=== PATIENT | male | born 1955 | race Caucasian/White ===

== ENCOUNTER 2016-11-27 08:09 | Day surgery (SDC) | payer OTHER ==
[2016-11-27] VITALS (18 sets, daily range): BP systolic 120–174; BP diastolic 64–108; PULSE 60–71; RESP 14–18; O2SAT 95–100
[~2016-11-27] VITALS: Ht 175.3 cm; Wt 92.9 kg
[~2016-11-27 08:09] MED LIST: ASPI-973 PO; LIP40 PO; LISI40TA PO; Lidocaine-Prilo 2.5-2.5% 30 Gm Cream TOPICAL ONE; METF500T4 PO; METR45GE TOP; TAMS0.4C98 PO; TRAZ-115 PO
[2016-11-27] MEDS ORDERED: EPHEDrine/NS 5 mg/mL 5 mL Syringe ONE (08:10)
[2016-11-27] MEDS ORDERED: fentaNYL-PF 50 mCg/mL 2 mL Inj ONE (08:10)
[2016-11-27] MEDS ORDERED: Propofol 10,000 mCg/mL 20 mL Inj ONE (08:10)
[2016-11-27] MEDS ORDERED: Ondansetron 2 mg/mL 2 mL Inj ONE (08:10)
--- NOTE | 2016-11-27 08:33 | PCM.HPANE ---
Patient Data Surgeon Admitting Provider: Attending Provider:Elisha Jacobson MD Primary Care Physician:Dylan Montalvo MD Other Provider:Shanthi Oconnell Anesthesia Reason for Visit Left Kidney Stone Ht/WT & BMI Height (Feet): 5 Height (Inches): 9 Weight (Kilograms): 94.08 Body Mass Index 30.00 Allergies Coded Allergies: latex (Unverified Adverse Reaction, Unknown, 11/26/16) Past Anesthesia History Anesthesia History: Denies:: Abnormal Airway, Anesthesia Reactions, Difficult Intubation, Fam Anesthesia Reaction Diabetes History Hx Diabetes?: Yes (Hgb A1C 7- approx 2 months ago ) Type of Diabetes: Type II Glycemic Control: Oral Medication MRSA MRSA: No Medications Hypertension Medication: Yes Home Meds Incl Beta Twila: No Reported Medications Trazodone 50 Mg [id number] Mg PO BID Ref 0 11/26/16 Tamsulosin (Flomax)0.4 Mg Capsule0.4 Mg PO DAILY Ref 0 11/26/16 Metformin 500 Mg [id number] Mg PO BID Ref 0 11/26/16 Lisinopril 40 Mg [id number] Mg PO DAILY 30 Days Ref 0 11/26/16 Atorvastatin (Lipitor)40 Mg [id number] Mg PO DAILY Ref 0 11/26/16 Aspirin 81 Mg [id number] Mg PO DAILY Ref 0 11/26/16 Discontinued Reported Medications Metronidazole (Metronidazole Gel)1 Applic/0.25 Gm Gel1 Applic TOP BID #45 GM Ref 0 11/26/16 History HEENT History: Denies:: Abnormal Airway Cataracts Difficult Intubation Dysphagia Glaucoma Hearing Problem Sinus Problem TMJ Other HEENT Pertinent History: hx of three wisdom teeth pulled a few months ago with conscious sedation Cardiovascular History: Positive for:: Hypertension Denies:: AICD Abdominal Aortic Aneurism Atrial Fibrillation Cardiac Surgery Chest Pain Congestive Heart Failure Coronary Artery Disease Heart Murmur Irregular Heartbeat Pacemaker Peripheral Vascular Rheumatic Fever Thrombophlebitis Hx of Respiratory Problem?: No Respiratory History: Denies:: Asthma COPD Emphysema Hemoptysis Oxygen Administration Pneumonia Pulmonary Embolism Tuberculosis Use of C-PAP Machine Hx Neurologic Problems?: No Neurological History: Denies:: CVA Dementia Dizziness Headaches Multiple Sclerosis Parkinson's Disease Seizures Gastrointestinal History: Denies:: Cirrhosis Gall Bladder Disease Gastroesphageal Reflux Gastrointestinal Bleeding Heartburn Hepatitis Hiatal Hernia Liver Disease Rectal Bleeding Hx of Problems?: Yes Genitourinary History: Positive for:: Kidney Stones (left kidney stone current admission) Denies:: Urinary Tract Infection Other Pertinent History: prior kidney stones, passed spontaneously Male Hx: Denies:: Prostate Problems Skin History: Denies:: History Skin Disorders? Pressure Ulcers Hx Musculoskeletal Problems?: Yes Musculoskeletal History: Positive for:: Back Injury (hx of back injury) Denies:: Fibromyalgia Joint Replacement Musculoskeletal Trauma (prior carpal tunnel release) Osteoarthritis Hx of Psycho/Social Problems?: No Psycho Social History: Denies:: Anxiety Hx Depression Hx Surgeries?: Yes (carpal tunnel ) Hx Any Other Health Problems?: Yes Other History: Positive for:: Cancer (unsure of what kind of skin cancer) Thyroid Disease (needle bx and drained x2 in last five years) History Blood Transfusions: Positive for:: Accept Blood Products? Denies:: Blood Transfusions Hx Diabetes: Yes (Hgb A1C 7- approx 2 months ago ) Hx Alcohol Use: YesAlcoholic Drinks Per Day: 3-4 drinks weeklyHx Substance Use : NoHave You Smoked inLast 12 mo: No Stop/Bang S-Snoring: Do You Snore Loudly: Yes T-Tired: feel tired, fatigued: No O-Obsered: Observed not breath: No P-Blood Pressure: treated: Yes B- Body Mass Index > 35 kg/m2: No A- Age over 50: Yes N- Neck Large Circumference: No G- Gender Male: Yes MELANIE Total Score: 4 Risk Assessment Category Category 1A: Patient has history of documented sleep apnea, and HAS NOT received any narcotic, sedative or anesthesia administration during this stay. Category 1B: Patient has history of documented sleep apnea, and HAS received any narcotic , sedative or anesthesia administration during this stay Category 2: Patient has SUSPECTED Obstructive Sleep Apnea, and HAS received any narcotic , sedative or anesthesia administration during this stay. Category 3: Patient has SUSPECTED Obstructive Sleep Apnea and HAS NOT received narcotic, sedative or anesthesia administration during this stay. Category 4: Outpatient in Procedural Areas with known sleep apnea or who screen positive for High Risk via the STOP/BANG questionnaire. Exam Exam General Appearance: Alert, Oriented X3, Cooperative HEENT/AIRWAY: MP 2, Neck Movement (from), Mouth Opening (wnl) Lungs: Clear to Auscultation Heart: Exam Unremarkable Plan Impression Patient chart reviewed, patient interviewed and anesthestic plan with risks, benefits, and alternatives discussed, and informed consent obtained. ASA Physical Status: ASA2 Mod Systemic Disease Anesthetic Plan: GA Bene/Risks/Altern/Consents: Yes HP Complete Prior to Induction: Yes Raghavendra Neves MD Nov 27, 2016 08:33
[2016-11-27] MEDS: Lactated Ringer's 1,000 ML IV SCH ×2 (08:44→10:09)
[2016-11-27] MEDS ORDERED: Insulin LISPRO 300 Unit/3 mL Inj ONE (09:18)
[2016-11-27] MEDS ORDERED: Insulin LISPRO 300 Unit/3 mL Inj SUBQ ONE ×2 (09:25→09:40)
[2016-11-27] MEDS ORDERED: CeFAZolin Inj 2 gm / 50mL D5W IV ONE (10:04)
[2016-11-27] MEDS ORDERED: Belladonna Alk-Opium 60 mg Rectal Suppository RECTAL ONE ×2 (10:16→10:27)
[2016-11-27] MEDS ORDERED: Lactated Ringer's 1,000 ML IV SCH (10:26)
[2016-11-27] MEDS ORDERED: Lactated Ringer's 500 ML IV PRN (10:26)
[2016-11-27] MEDS ORDERED: Labetalol 5 mg/mL 4 mL Inj IV PRN (10:30)
[2016-11-27] MEDS ORDERED: EPHEDrine Sulfate 50 mg/mL Inj IVPUSH PRN (10:30)
[2016-11-27] MEDS ORDERED: Phenylephrine 10,000 mCg/mL Inj IVPUSH PRN (10:30)
[2016-11-27] MEDS ORDERED: Dexamethasone 4 mg/mL Inj IVPUSH PRN (10:30)
[2016-11-27] MEDS ORDERED: Atropine 0.4 mg/mL Inj IVPUSH PRN (10:30)
[2016-11-27] MEDS ORDERED: Ondansetron 2 mg/mL 2 mL Inj IVPUSH PRN (10:30)
[2016-11-27] MEDS ORDERED: hydrALAZINE 20 mg/mL Inj IVPUSH PRN (10:30)
--- NOTE | 2016-11-27 10:49 | DRSVH ---
PROCEDURE: X-RAY KUB ([id number]) INDICATIONS: LEFT KIDNEY STONE TECHNIQUE: One view of the abdomen acquired. COMPARISON: [facility], CR, XR KUB, 11/19/2016, 15:53. FINDINGS: Surgical changes and devices: None. Bowel: Bowel gas pattern is normal. Soft tissues: 2 calcifications projected over the left kidney similar to prior examination largest me asure roughly 1.5 cm. Bones: No suspicious bony lesions. IMPRESSION: Left renal calcifications redemonstrated. Dictated by: Ced Guillaume RRA Interpreted: Charlotte Grace MD on 11/27/2016 at 10:49 Transcribed by: TIARA on 11/27/2016 at 10:49 Approved by: Charlotte Grace MD, PhD on 11/27/2016 at 16:52
[2016-11-27] MEDS ORDERED: HYDROcodone-APAP 5-325 mg Tablet PO PRN (11:20)
[2016-11-27] MEDS ORDERED: Ondansetron 8 mg ODT Tablet PO PRN (11:20)
[2016-11-27] MEDS ORDERED: Phenazopyridine 97.5 mg Tablet PO PRN (11:25)
[2016-11-27] MEDS: fentaNYL-PF 50 mCg/mL 2 mL Inj IVPUSH PRN ×4 (11:35→12:20)
[2016-11-27] MEDS: HYDROmorphone 1 mg/mL Inj IVPUSH PRN ×2 (11:45→13:30)
--- NOTE | 2016-11-27 11:59 | PCM.ANEP1 ---
Post Anesthesia Phase 1 PACU Phase 1 Assessment Vital Signs Vital Signs Date Time Temp Pulse Resp B/P Pulse Ox O2 Delivery O2 Flow Rate FiO2 11/27/16 11:30 62 14 151/71 96 Nasal Cannula 4 11/27/16 11:25 63 15 122/78 95 Nasal Cannula 4 11/27/16 11:20 60 17 146/72 96 Nasal Cannula 4 11/27/16 11:15 36.8 62 17 120/64 95 Nasal Cannula 4 11/27/16 08:57 35.5 67 16 143/70 96 Room Air Anesthetic Administered: GA Level of Alertness: Awake, talking EVANS's with Equal Strength: Yes Pain: No Nausea or Vomiting: No Oxygen Delivery: Nasal Cannula Lungs: Normal Air Movement Raghavendra Neves MD Nov 27, 2016 11:59
--- NOTE | 2016-11-27 14:55 | PCM.ANEP2 ---
Post Anesthesia Evaluation ASA/CMS Post Anesthesia VS in Patient's Normal Range?: Yes Resp Stable; Airway Patent?: Yes CV Function & Hydration Stable: Yes Mental Status Recovered?: Yes Pain control Satisfactory?: Yes N/V Control Satisfactory?: Yes Raghavendra Neves MD Nov 27, 2016 14:55
--- NOTE | 2016-11-27 15:30 | DRSVH ---
PROCEDURE: X-RAY ABDOMEN, ONE VIEW ([id number]) INDICATIONS: POST OP UROLOGY STENT PLACEMENT TECHNIQUE: One view of the abdomen acquired. COMPARISON: [facility], CR, XR KUB, 11/19/2016, 15:53. [facility], CR, XR K UB, 11/27/2016, 8:48. FINDINGS: Surgical changes and devices: Left ureteral stent is in place interval since prior examination. Bowel: Bowel gas pattern is normal. Soft tissues: Calcifications project over the left kidney which are decreased in size roughly seconda ry to lithotripsy; please correlate with clinical data. Visualized solid organ contours appear normal in size. Bones: No suspicious bony lesions. IMPRESSION: Status post placement of a left renal stent. Dictated by: Charlotte Grace MD, PhD on 11/27/2016 at 15:27 Approved by: Charlotte Grace MD, PhD on 11/27/2016 at 15:29
--- NOTE | 2016-11-28 14:54 | OP ---
[address] [address] OPERATIVE REPORT PATIENT: HOA LAZO : 1955 MR#: [id number] ADMIT: 11/27/2016 JOB ID: [id number] DATE OF SURGERY: 11/27/2016 SURGEON: PROCEDURE: Left-sided extracorporeal shock wave lithotripsy and left-sided double-J stent. SURGEON: Elisha Jacobson M.D. ANESTHESIA: General. PREOPERATIVE DIAGNOSIS(ES): Left-sided renal calculi. POSTOPERATIVE DIAGNOSIS(ES): Left-sided renal calculi. INDICATIONS: The patient is a 61-year-old gentleman with a history of nephrolithiasis, stone approaching at least 1 cm in size on the left, nonobstructing, possibly intermittently obstructing the UPJ. Counseled about risks and benefits by Dr. Anna Richardson and elected shock wave lithotripsy with stent placement as treatment. PROCEDURE IN DETAIL: After appropriate informed consent was obtained, the patient was brought to the operating room. He received IV Ancef prior to onset of the procedure. SCDs were placed. Adequate general anesthesia induced. He was carefully placed in the dorsal lithotomy position. All pressure points carefully padded. Cleaned, prepped, and draped in the usual sterile fashion. Rigid scope was introduced in the patient's bladder which was grossly normal in appearance. The left-sided ureteral orifice was visualized, cannulated and a wire advanced up into the renal pelvis. We then advanced a 6-Turkish x 26 cm double-J stent over the wire into good position with a slight with a good curl once the wire was withdrawn in the renal pelvis and a curl in the pelvis. Once this was done, the scope was withdrawn. The patient's bladder was drained. He was repositioned carefully into the supine position. All pressure points carefully padded. The shockwave lithotripter head was brought in. Fluoroscopically the stone conglomeration was very well visible and we powered up to 5 in escalated fashion with a pause of 2 minutes after 200 shocks. Break-up appeared to be quite good. Initial shock rate for the first 1000 was 60 and then it was brought up to 80 as the stone appeared to be breaking up very nicely. At termination of the procedure after 2500 shocks, the stone had become much more hazy in appearance, appeared to have good break up. The stent was in good position. The skin condition was excellent. He was awakened, taken in stable condition to the postanesthesia care unit.
== END 2016-11-27 23:59 | disposition home or self-care (01) ==
LOC: SAS 08:09
PROVIDERS: ATTEND Urology
DX: N20.0 Calculus of kidney (principal)
CPT/HCPCS: 50590; 52332; 74000; C2617; J0690; J1170; J2250; J2405; J3010; J3360; J7120